=== PATIENT | female | born 1995 | race American Indian/Alaskan Native ===

== ENCOUNTER 2017-11-21 13:36 | Emergency (ER) | payer OTHER ==
--- NOTE | 2017-11-21 16:18 | Cat Scan Report ---
FINAL REPORT PROCEDURE: CT head without contrast. TECHNIQUE: Computerized tomography of the head was performed without contrast material. HISTORY: Altered mental status, possible psychosis. COMPARISON: No prior studies are available for comparison. FINDINGS: The ventricles are normal in size. The john matter and white matter appear normal. There are no mass lesions. There is no intracranial hemorrhage. There are no signs of acute infarction. The calvarium appears intact. The mastoid air cells and paranasal sinuses are well aerated. IMPRESSION: Normal study.
--- NOTE | 2017-11-21 17:07 | Emergency Department Report ---
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 The father states that the patient was in her usual state of health until yesterday. She was at her mother's house and thought that she was getting the flu. She took some TheraFlu. After that, she apparently began to stare out into space according to the father. She has not been responsive verbally. She will however ambulate and she will try to make eye contact. But when asking question the patient does not respond. The father admits that the patient has been under some stress at school. Father and grandmother states there is no known history of drug use in this patient. -: Sudden, days(s) (1) Associated Psychiatric Symptoms: none History of same: No Quality: constant Improves With: none Worsens With: none Associated Symptoms: other (patient does not respond at this time to any questions) Treatments Prior to Arrival: none - Related Data Allergies Allergy/AdvReac Type Severity Reaction Status Date / Time No Known Allergies Allergy Unverified 11/21/17 14:18 ED Review of Systems ROS: Stated complaint: MH/PSYCH EVAL Other details as noted in HPI Comment: Unobtainable due to pts medical conditions (patient will not respond to questions and will not follow commands.) ED Past Medical Hx - Past Medical History Previous Medical History?: No - Surgical History Past Surgical History?: No - Social History Smoking Status: Never Smoker Substance Use Type: None ED Physical Exam - General Limitations: Physical Limitation, Other General appearance: other (catatonic, staring off into space, will occasionally makes eye contact, will not respond to questions or follow commands.) - Head Head exam: Present: atraumatic, normocephalic - Eye Eye exam: Present: normal appearance, PERRL, EOMI - ENT ENT exam: Present: normal exam - Neck Neck exam: Present: normal inspection - Respiratory Respiratory exam: Present: normal lung sounds bilaterally. Absent: respiratory distress, wheezes, rales, rhonchi - Cardiovascular Cardiovascular Exam: Present: regular rate, normal rhythm, normal heart sounds - GI/Abdominal GI/Abdominal exam: Present: soft, normal bowel sounds. Absent: distended, tenderness, guarding, rebound, rigid - Rectal Rectal exam: Present: deferred - Extremities Exam Extremities exam: Present: normal inspection, full ROM - Back Exam Back exam: Present: normal inspection, full ROM - Neurological Exam Neurological exam: Present: alert. Absent: oriented X3 - Psychiatric Psychiatric exam: Present: flat affect - Skin Skin exam: Present: warm, dry, intact ED Course Vital Signs 11/21/17 11/21/17 11/21/17 14:18 14:53 16:06 Temperature 98 F 98.6 F Pulse Rate 81 101 H Respiratory 16 14 16 Rate Blood Pressure 130/88 [Left] Blood Pressure 143/94 [Right] O2 Sat by Pulse 100 100 Oximetry - Reevaluation(s) Reevaluation #1: 11/21/17 17:[address] is negative at this time. We will go ahead and get a psych panel. I'll also add a TSH as well. I discussed the case with the parents. I explained to them that we will need to get a full workup and is medically cleared and we will get psychiatric services involved. They express understanding. Reevaluation #2: 11/21/17 21:39 Mental health evaluation pending Reevaluation #3: 11/22/17 01:47 Discussed with mental health worker who believes she is having a schizophrenic episode - new onset. Will now need to 1013 and await placement. ED Medical Decision Making - Lab Data Result diagrams: 11/21/17 17:20 11/21/17 17:20 Critical care attestation.: If time is entered above; I have spent that time in minutes in the direct care of this critically ill patient, excluding procedure time. ED Disposition Clinical Impression: Schizophrenia Qualifiers: Schizophrenia type: catatonic schizophrenia Qualified Code(s): F20.2 - Catatonic schizophrenia Disposition: DC/TX-65 PSY HOSP/PSY UNIT Is pt being admited?: No Does the pt Need Aspirin: No Condition: Stable Referrals: PRIMARY CARE, [Primary Care Provider] - 3-5 Days
[2017-11-21 17:41] LABS: Basophils % (Auto) 0.4 % (0.0-1.8); Eosinophils % (Auto) 0.1 % (0.0-4.3); Hematocrit 38.2 % (30.3-42.9); Hemoglobin 12.6 gm/dl (10.1-14.3); Lymphocytes # (Auto) 1.5 K/mm3 (1.2-5.4); Lymphocytes % (Auto) 13.2 % (13.4-35.0); Mean Corpuscular HGB Conc 33 % (30-34); Mean Corpuscular Hemoglobin 30 pg (28-32); Mean Corpuscular Volume 91 fl (79-97); Monocytes # (Auto) 0.8 K/mm3 (0.0-0.8); Monocytes % (Auto) 7.2 % (0.0-7.3); Platelet Count 303 K/mm3 (140-440); Red Blood Count 4.19 M/mm3 (3.65-5.03); Red Cell Distribution Width 14.9 % (13.2-15.2)
[2017-11-21 17:43] LABS: Bilirubin,Urine NEG (Negative); Blood,Urine SM (Negative); Color,Urine Yellow (Yellow); Mucus,Urine FEW /HPF; Nitrite,Urine NEG (Negative); Protein,Urine <15 mg/dL mg/dL (Negative); Urobilinogen,Urine < 2.0 mg/dL (<2.0)
[2017-11-21 17:48] LABS: BUN/Creatinine Ratio 4; Blood Urea Nitrogen 3 mg/dL (7-17); Calcium 9.3 mg/dL (8.4-10.2); Hemolysis Index 81
[2017-11-21 18:16] LABS: Amphetamine Screen,Urine PRESUMPTIVE NEGATIVE; Benzodiazepines Screen,Urine PRESUMPTIVE NEGATIVE; Cannabinoid Screen,Urine PRESUMPTIVE NEGATIVE; Cocaine Screen,Urine PRESUMPTIVE NEGATIVE; Methadone Screen,Urine PRESUMPTIVE NEGATIVE; Opiate Screen,Urine PRESUMPTIVE NEGATIVE
[2017-11-21] MEDS ORDERED: TYLENOL PO ONE (19:20)
[2017-11-21] MEDS ORDERED: TYLENOL ONE (19:21)
[2017-11-21 19:43] LABS: HCG Qualitative,Urine Negative (Negative)
[2017-11-21] MEDS ORDERED: TORADOL ONE (20:19)
[2017-11-21] MEDS ORDERED: TORADOL IM ONE (20:23)
[2017-11-22] MEDS ORDERED: TYLENOL ONE (00:42)
[2017-11-22] MEDS ORDERED: ATIVAN ONE (01:34)
[2017-11-22] MEDS ORDERED: ATIVAN IV ONE ×2 (02:05→12:40)
[2017-11-22] MEDS ORDERED: ATIVAN PO ONE (13:06)
[2017-11-22] MEDS ORDERED: D5NS 1,000 ML IV SCH (15:00)
--- NOTE | 2017-11-22 15:02 | Emergency Department Report ---
Blank Doc - Documentation Documentation: It was brought to my attention that the patient's heart rate was elevated. The patient is alert and awake. She denies headache. She was being fed by RN without difficulty. She speaks intermittently. She denies pain. She is afebrile. Patient reportedly has not been sleeping intermittently pacing around. Ativan by mouth initiated. When I related patient still remains tachycardic. Original UA reveals early ketones suggestive of possible dehydration. D5 normal saline ordered for hydration. Patient had a TSH that was normal. No hypotension, hypoxia, or tachypnea noted
--- NOTE | 2017-11-22 16:34 | Consultation ---
History of Present Illness - Reason for Consult Consult date: 11/22/17 Reason for consult: psychiatric evaluation, altered mental status, possible catatonia - Chief Complaint Chief complaint: mumbled - History of Present Psychiatric Illness This is a 22 year-old female, who is a third-year college student with no significant past medical history presents to the emergency room in a catatonic state. Per the record her father states that the patient was in her usual state of health until yesterday. She was at her mother's house and thought that she was getting the flu. She took some TheraFlu. After that, she apparently began to stare out into space according to the father. She has not been responsive verbally. She will however ambulate and she will try to make eye contact. There is no known history of alcohol or illicit substance use. UDS is negative. Staff report she needed help to eat but is using the bathroom on her own. She took ativan and went to sleep after her dose. Per staff, she was awake for days. Medications and Allergies Allergies Allergy/AdvReac Type Severity Reaction Status Date / Time No Known Allergies Allergy Unverified 11/21/17 14:18 Active Meds: Active Medications Dextrose/Sodium Chloride (D5ns) 1,000 mls @ 999 mls/hr IV DIRECT YUMIKO Past psychiatric history - Past Medical History Past Medical History: No medical history - past Psychiatric treatment and history psychiatric treatment history: none recent stress at school per the record - Social History Social history: other (college student) Mental Status Exam - Vital signs Last Vital Signs Temp 99.3 F 11/22/17 10:19 Pulse 66 11/22/17 15:32 Resp 20 11/22/17 13:55 BP 132/88 11/22/17 13:55 Pulse Ox 100 11/22/17 15:32 - Exam Narrative exam: The nurse reports she briefly spoke to her. Unable to assess mental status due to sleep. Orientation: person (responded to her name and mumbled) Results Result Diagrams: 11/21/17 17:20 11/21/17 17:20 Abnormal lab results 11/21/17 11/21/17 11/21/17 Range/Units 17:20 17:20 17:20 Lymph % (Auto) 13.2 L (13.4-35.0) % Seg Neutrophils % 79.1 H (40.0-70.0) % Seg Neutrophils # 8.7 H (1.8-7.7) K/mm3 Chloride 109.0 H (98-107) mmol/L Carbon Dioxide 18 L (22-30) mmol/L BUN 3 L (7-17) mg/dL Glucose 104 H (65-100) mg/dL Salicylates < 0.3 L (2.8-20.0) mg/dL All other labs normal. Assessment and Plan Assessment and plan: Impression: altered mental status catatonia r/o psychosis r/o luisana r/o substance use which is not detectable on the standard drug screen The medical team has addressed medical concerns. Due to the sudden presentation of altered mental status, physical symptoms, and difficulty completing ADLs, further observation is necessary. Monitor for decompensation. Recommendation: Observe behavior, physical complaints, v/s, and mental status over the next 24 hours.
[2017-11-23 12:09] LABS: BUN/Creatinine Ratio 14; Blood Urea Nitrogen 11 mg/dL (7-17); Calcium 9.5 mg/dL (8.4-10.2); Hemolysis Index 8
--- NOTE | 2017-11-23 12:41 | Progress Note ---
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 Today the patient is non verbal and catatonic. She does not answer any questions nor opens her eyes. Per her assigned RN, she stated that the patient ate her dinner last night. Mental Status Exam - Vital signs Last Vital Signs Temp 98.1 F 11/22/17 20:00 Pulse 100 H 11/22/17 20:00 Resp 17 11/22/17 20:00 BP 131/80 11/22/17 20:00 Pulse Ox 98 11/22/17 20:00 - Exam Narrative exam: Unable to complete the MSE because of the patient's condition. Assessment and Plan Impression: Catatonia. Today the patient is non verbal and catatonic. DDx: R/O Schizophrenia, R/O Mood DO Medical: AMS. The medical team has addressed medical concerns. Due to the sudden presentation of altered mental status, physical symptoms, and difficulty completing ADLs, further observation is necessary. Monitor for decompensation. Recommendation/Plan. Continue 1013. Observe behavior, physical complaints, v/s, and mental status. Start Ativan 1 mg IM TID for catatonia. Recommend GI/DVT prophylaxis. Monitor the patient;'s PO intake.
[2017-11-23 14:59] VITALS: BP 116/68
[2017-11-23] MEDS: ATIVAN IM SCH ×2 (16:03→22:55)
== END 2017-11-24 03:05 ==
LOC: EEVIPCON 13:36 → ED 13:36
DX: F20.2 Catatonic schizophrenia (principal)
CPT/HCPCS: 36415; 70450; 80048; 80307; 81001; 81025; 82550; 83735; 84443; 84702; 85025; 96372; 96374; 99284; G0480; J1885; J2060; 80320